=== PATIENT | female | born 1990 | race Two or more races ===

== ENCOUNTER 2021-10-26 11:47 | Observation (INO) | payer MEDICAID ==
[2021-10-26] MEDS ORDERED: PREN-96 PO (12:28)
== END 2021-10-26 13:44 | disposition home or self-care (01) ==
LOC: LDRP 11:47 → UNDOADMOB 11:47 → LDRP 12:04
PROVIDERS: ADMIT Obstetrics & Gynecology Obstetrics; ATTEND Obstetrics & Gynecology Obstetrics
DX: O47.03 False labor before 37 completed weeks of gestation, third trimester (principal); O99.891 Other specified diseases and conditions complicating pregnancy; M25.519 Pain in unspecified shoulder; Z3A.36 36 weeks gestation of pregnancy
CPT/HCPCS: 59025; 81002; 94760; G0378

== ENCOUNTER 2021-11-21 10:43 | Observation (INO) | payer MEDICAID ==
[~2021-11-21 10:43] MED LIST: PREN-96 PO
== END 2021-11-21 14:01 | disposition home or self-care (01) ==
LOC: LDRP 10:43
PROVIDERS: ADMIT Obstetrics & Gynecology; ATTEND Obstetrics & Gynecology
DX: O48.0 Post-term pregnancy (principal); O62.9 Abnormality of forces of labor, unspecified; Z3A.40 40 weeks gestation of pregnancy
CPT/HCPCS: 59025; 76818; 81002; 94760; G0378

== ENCOUNTER 2021-11-23 07:00 | Inpatient (IN) | payer MEDICAID ==
[~2021-11-23] VITALS: Ht 162.6 cm; Wt 114.8 kg
[2021-11-23] MEDS ORDERED: PHISODERM TOP SOLN 240ML BTL TOP PRN (09:00)
[2021-11-23] MEDS ORDERED: PROMETHAZINE HCL 25 MG/ML 1ML IV PRN (09:00)
[2021-11-23] MEDS ORDERED: BUTORPHANOL TARTRATE 2 MG/1 ML VIAL IV PRN ×2 (09:00)
[2021-11-23] MEDS ORDERED: LIDOCAINE 2%HCL (LOCAL ANESTH.) INJ 10ml MDV IJ PRN (09:00)
[2021-11-23 09:54] LABS: Basophils # (auto) 0 10 ^3/uL (0-0.2); Basophils % (auto) 0.3 % (0.0-2.0); Eosinophils # (auto) 0 10 ^3/uL (0-0.8); Eosinophils % (auto) 0.6 % (0.0-7.0); Hematocrit 38.2 % (36.0-46.0); Hemoglobin 12.9 g/dL (12.2-16.2); Lymphocytes # (auto) 2.2 10 ^3/uL (0.4-5.4); Lymphocytes % (auto) 29.2 % (10.0-50.0); Mean Corpuscular Hemoglobin 29.1 pg (28.0-32.0); Mean Corpuscular Hgb Conc. 33.8 g/dL (32.0-36.0); Mean Corpuscular Volume 86.1 fL (80.0-100.0); Monocytes # (auto) 0.6 10 ^3/uL (0-1.3); Monocytes % (auto) 7.8 % (0.0-12.0); Neutrophils # (auto) 4.8 10 ^3/uL (1.6-8.6); Neutrophils % (auto) 62.1 % (37.0-80.0); Red Blood Cells 4.44 10^6/uL (4.0-5.20); Red Cell Distribution Width 14.2 % (11.8-14.3); White Blood Cell 7.7 10^3/uL (4.4-10.8)
[2021-11-23 10:01] LABS: Albumin 2.5 g/dL (3.4-5.0); Calcium 8.5 mg/dL (8.5-10.1)
[2021-11-23 10:05] LABS: BUN/Creatinine Ratio 15.3; Bilirubin, Total 0.2 mg/dL (0.2-1.0); Total Protein 5.8 g/dL (6.4-8.2)
[2021-11-23 10:08] LABS: INR 0.9 (0.9-1.15); Partial Thromboplastin Time 28.9 sec (24.6-33.4)
[2021-11-23] MEDS: SODIUM CHLORIDE 0.9% 1,000 ML IV SCH ×3 (10:12→18:30)
[2021-11-23 10:13] LABS: Alcohol, Urine < 3.0 mg/dL (0-10); Amphetamine Screen, Urine NEGATIVE (NEGATIVE); Barbiturate Scree,Urine NEGATIVE (NEGATIVE); Benzodiazephine Screen, Urine NEGATIVE (NEGATIVE); Cannabinoid Screen, Urine NEGATIVE (NEGATIVE); Cocaine Screen, Urine NEGATIVE (NEGATIVE); Opiate Scree,Urine NEGATIVE (NEGATIVE); Phencyclidine Screen, Urine NEGATIVE (NEGATIVE)
[2021-11-23 10:50] LABS: Urine Bacteria FEW /hpf (None Seen); Urine Blood Negative /uL (Negative); Urine Specific Gravity 1.014 (1.001-1.035); Urine WBC 17 /hpf (0 - 5)
[2021-11-23] MEDS ORDERED: miSOPROStol 50 MCG per PRE-CUT 1/2 TAB PO PRN ×2 (11:15→16:00)
[2021-11-23] MEDS ORDERED: NS/OXYTOCIN 20UNITS 500 ML IV ONE ×2 (11:15→11:45)
[2021-11-23] MEDS ORDERED: NALOXONE HCL 0.4 MG/ML VIAL IV ONE (18:30)
[2021-11-23] MEDS ORDERED: LACTATED RINGER'S 1,000 ML IV ONE ×2 (18:30→22:30)
[2021-11-23] MEDS ORDERED: ePHEDrine SULFATE 50 MG/ML AMP IV ONE (18:30)
[2021-11-23] MEDS ORDERED: ROPIVACAINE HCL 200 ML EPI SCH (18:30)
[2021-11-23] MEDS: WITCH HAZEL-GLYCERIN PAD TOP PRN (20:29)
[2021-11-23] MEDS: DERMOPLAST 60ML BOTTLE TOP PRN (20:29)
[2021-11-23] MEDS ORDERED: NS/OXYTOCIN 20UNITS 1,000 ML IV SCH (22:30)
[2021-11-24] MEDS: SODIUM CHLORIDE 0.9% 1,000 ML IV SCH (01:58)
[2021-11-24 06:07] LABS: RPR Non Reactive (Non Reactive)
[2021-11-24] MEDS ORDERED: ACETAMINOPHEN 325 MG TAB PO PRN (07:45)
[2021-11-24] MEDS ORDERED: ONDANSETRON ODT 4 MG TAB PO PRN (07:45)
[2021-11-24] MEDS: IBUPROFEN 800 MG TAB PO SCH ×3 (12:19→23:35)
[2021-11-24 15:00] VITALS: BP 114/69
[2021-11-24 18:30] VITALS: BP 114/64
[2021-11-24] MEDS ORDERED: DOCUSATE SOD 100 MG CAP PO SCH (22:00)
[2021-11-24 23:30] VITALS: BP 115/72
[2021-11-24 23:37] VITALS: BP 115/72
[2021-11-25 03:30] VITALS: BP 117/75
[2021-11-25] MEDS: IBUPROFEN 800 MG TAB PO SCH (05:34)
[2021-11-25] MEDS: DERMOPLAST 60ML BOTTLE TOP PRN (05:39)
[2021-11-25] MEDS: WITCH HAZEL-GLYCERIN PAD TOP PRN (05:39)
[2021-11-25 07:00] VITALS: BP 112/72
[2021-11-25 11:30] VITALS: BP 106/69
== END 2021-11-25 12:42 | disposition home or self-care (01) | DRG 560 ==
LOC: LDRP 07:00
PROVIDERS: ADMIT Obstetrics & Gynecology; ATTEND Obstetrics & Gynecology
PROC: 10E0XZZ Delivery of Products of Conception, External Approach (ICD-10-PCS; principal; 2021-11-24)
PROC: 0HQ9XZZ Repair Perineum Skin, External Approach (ICD-10-PCS; 2021-11-24)
PROC: 0W8NXZZ Division of Female Perineum, External Approach (ICD-10-PCS; 2021-11-24)
PROC: 3E0R3BZ Introduction of Anesthetic Agent into Spinal Canal, Percutaneous Approach (ICD-10-PCS; 2021-11-24)
PROC: 00HU33Z Insertion of Infusion Device into Spinal Canal, Percutaneous Approach (ICD-10-PCS; 2021-11-24)
DX: O98.52 Other viral diseases complicating childbirth (principal); Z37.0 Single live birth; U07.1 COVID-19; O48.0 Post-term pregnancy; O69.1XX0 Labor and delivery complicated by cord around neck, with compression, not applicable or unspecified; O76 Abnormality in fetal heart rate and rhythm complicating labor and delivery; O70.0 First degree perineal laceration during delivery
CPT/HCPCS: 36415; 59025; 59409; 62282; 80053; 80307; 81001; 85025; 85610; 85730; 86592; 86850; 86900; 86901; 94760; 96360; 96361; 96365; 96366; G0378; J2001

== ENCOUNTER 2021-11-26 17:46 | Emergency (ER) | payer MEDICAID ==
[~2021-11-26] VITALS: Ht 162.6 cm; Wt 111.2 kg
[2021-11-26 18:45] VITALS: BP 138/84
[2021-11-26 19:54] LABS: Basophils # (auto) 0.1 10 ^3/uL (0-0.2); Basophils % (auto) 0.6 % (0.0-2.0); Eosinophils # (auto) 0.1 10 ^3/uL (0-0.8); Eosinophils % (auto) 1.5 % (0.0-7.0); Hematocrit 36.6 % (36.0-46.0); Hemoglobin 12.3 g/dL (12.2-16.2); Lymphocytes # (auto) 2.4 10 ^3/uL (0.4-5.4); Lymphocytes % (auto) 25.1 % (10.0-50.0); Mean Corpuscular Hemoglobin 29.3 pg (28.0-32.0); Mean Corpuscular Hgb Conc. 33.6 g/dL (32.0-36.0); Mean Corpuscular Volume 87.3 fL (80.0-100.0); Monocytes # (auto) 0.6 10 ^3/uL (0-1.3); Neutrophils # (auto) 6.3 10 ^3/uL (1.6-8.6); Neutrophils % (auto) 66.8 % (37.0-80.0); White Blood Cell 9.5 10^3/uL (4.4-10.8)
[2021-11-26 20:08] LABS: Albumin 2.5 g/dL (3.4-5.0); Calcium 8.8 mg/dL (8.5-10.1); Potassium 3.7 mmol/L (3.5-5.1)
[2021-11-26 20:10] LABS: INR 0.92 (0.9-1.15); Partial Thromboplastin Time 27.3 sec (24.6-33.4)
[2021-11-26 20:11] LABS: Bilirubin, Total 0.4 mg/dL (0.2-1.0); Total Protein 6.4 g/dL (6.4-8.2)
== END 2021-11-27 01:28 | disposition left against medical advice (07) ==
LOC: ER 17:46
DX: R60.0 Localized edema (principal)
CPT/HCPCS: 36415; 80053; 85025; 85610; 85730; 93971

== ENCOUNTER 2023-07-11 09:09 | Emergency (ER) | payer MEDICAID ==
[~2023-07-11] VITALS: Ht 162.6 cm; Wt 114.9 kg
[2023-07-11 09:30] VITALS: BP 138/93
[2023-07-11 10:41] VITALS: PULSE 83; RESP 18; O2SAT 99
[2023-07-11] MEDS: KETOROLAC TROMETH 30 MG/ML 1ML VIAL IM ONE (10:58)
[2023-07-11] MEDS ORDERED: MELO-335 PO (12:04)
== END 2023-07-11 12:13 | disposition home or self-care (01) ==
LOC: ER 09:09
DX: M25.531 Pain in right wrist (principal); Z79.899 Other long term (current) drug therapy
CPT/HCPCS: 73110; 96372; 99283; J1885